=== PATIENT | male | born 1955 | race Caucasian/White ===

== ENCOUNTER → 2019-01-14 14:44 | Outpatient (CLI) | payer BC, SELFPAY ==
--- NOTE | 2019-01-14 14:49 | CT_ITS ---
STUDY: CT MAXILLOFACIAL SINUSES REASON FOR EXAM: Male, 63 years old. Sinusitis RADIATION DOSAGE (If Supplied By Facility): CTDIvol = ( 33.06 ) mGy, DLP = ( 829.72 ) mGycm TECHNIQUE: The patient was scanned in a multi detector CT scanner. High resolution axial imaging was performed without the administration of intravenous contrast material. Sagittal and coronal images were reconstructed. Individualized dose optimization techniques were used for this CT. COMPARISON: None. FINDINGS: FRONTAL SINUSES: Mucosal thickening inferior recesses of the frontal sinuses bilaterally without fluid retention. ETHMOIDAL SINUSES: Complete or partial opacification of the ethmoid sinuses bilaterally more extensively on the left status post bilateral ethmoidectomy. MAXILLARY SINUSES: Circumferential mild to moderate mucosal thickening of the right maxillary sinus status post nasoantral window which is large and remains patent. Status post right uncinectomy and partial middle turbinectomy. Advanced mucosal thickening throughout the left maxillary sinus with an occluded nasal antral window status post uncinectomy and middle turbinectomy. Mucosal thickening and complete occlusion of the left middle meatus. Somewhat nodular appearance of the mucosa in the nasal cavity. SPHENOIDAL SINUSES: Mild mucosal thickening in the right sphenoid sinus. Anterior and superior mucosal thickening in the left sphenoid sinus mucosal thickening in the sphenoethmoidal recess Normal bilateral inferior turbinates. Mild anterior left nasal septal deviation, 2 mm. There is patency of the bilateral nasal airways. The visualized osseous structures are normal. The visualized bilateral orbital contents are normal. CT/Sinus/Facial Bone IMPRESSION: Mucosal thickening of the inferior frontal sinuses with narrowing of the inferior recesses without fluid retention. Complete or partial opacification of ethmoids sinuses more extensively on the left status post bilateral ethmoidectomy. Circumferential mild to moderate mucosal thickening of the right maxillary sinus status post nasal antral window which is large and remains patent. Status post right uncinectomy and partial middle turbinectomy. Advanced mucosal thickening throughout most of the left maxillary sinus with an occluded nasoantral window also status post uncinectomy and middle turbinectomy. Mucosal thickening and complete occlusion of the left middle meatus. Somewhat nodular surface features of the mucosa in the nasal cavity. Nasal polyposis? Mild mucosal thickening right sphenoid sinus. Mild to moderate anterior and superior mucosal thickening in the left sphenoid sinus mucosal thickening in the sphenoethmoidal recess. Mild anterior left nasal septal deviation. Electronically Signed: Gloria Capone MD at 16:01 EDT , Service support ,
== END ==
PROVIDERS: Family Provider Family Medicine; PCP Family Medicine; Referring Provider Otolaryngology; Visit Provider Otolaryngology
DX: J32.2 Chronic ethmoidal sinusitis (principal)
CPT/HCPCS: 70486

== ENCOUNTER 2019-01-28 05:56 | Day surgery (SDC) | payer BC, SELFPAY ==
[2019-01-28] VITALS (7 sets, daily range): BP systolic 138–168; BP diastolic 78–96; PULSE 66–90; RESP 16–18; TEMP 36.1–36.3; O2SAT 94–97; BMI 37.3
--- NOTE | 2019-01-28 | SEP_PTH ---
PATIENT: KIMBERLI AMES LOC: [facility] [place] U#:[id number] AGE/SX: 63/M ROOM: RE01/28/[address]: Dr. Zi Burgos MD : 1955 BED: DIS: 01/28/2019 SPEC #: [id number] RECD: 01/28/19 13:03 STATUS: CARLEE REOg #: [id number] SUSANA: 01/28/19 00:[address]: Zi Burgos DEPT: SURGICAL PATHOLOGY RECD BY: Cal Weeks ENTERED: 01/28/19 13:04 SP TYPE: SEPTUM OTHR DR: Dr. Danis Cardona MD Tissues: A - Nasal septum, NOS B - Ethmoid sinus, NOS C - Ethmoid sinus, NOS Procedures: Decalcification bone/plaque Surgery Specimen Level III HEADER OPERATION: Endoscopy nasal/sinus with ethmoidectomy PRE-OP DIAGNOSIS: Chronic ethmoidal sinusitis, chronic sphenoidal sinusitis, chronic left maxillary sinusitis TISSUE SUBMITTED: A - Septal contents, B - Right sinus contents, C - Left sinus contents MICROSCOPIC DIAGNOSIS A. Nasal septum, septoplasty: Fragments of hyaline cartilage and bone with mild reparative change. B. Right sinus contents, excision: Consistent with chronic sinusitis. Polypoid fragments of respiratory mucosa consistent with sinonasal polyps. Fragments of bone with no pathologic change. C. Left sinus contents, excision: Consistent with chronic sinusitis. Minute fragments of bone with no pathologic change. AM:magalis 02/02/19 MICROSCOPIC DESCRIPTION Slides are reviewed. GROSS DESCRIPTION A - Received in fixative is one container labeled with the patient's name and designated septal contents. The specimen consists of multiple fragments of cartilage and bone that in aggregate measure 3 x 2.5 x 0.3 cm. The entire specimen is submitted in one cassette after decalcification. B - Received in fixative is one container labeled with the patient's name and designated right sinus contents. The specimen consists of a piece of nogueira-pink polypoid tissue measuring 2.5 x 1.5 x 0.6 cm. A piece of bone is noted in the center of the specimen. Also present in the container are multiple pieces of nogueira, hemorrhagic soft tissue mixed with fragments of bone measuring in aggregate 5 x 3 x 0.3 cm. The entire specimen is submitted in three cassettes after decalcification. Cassette 1 contains the polypoid piece of tissue. C - Received in fixative is one container labeled with the patient's name and designated left sinus contents. The specimen consists of multiple fragments of hemorrhagic soft tissue that in aggregate measure 5 x 4 x 2 cm. The specimen is totally submitted in one cassette. Also present in the container is a piece of nogueira mucosal tissue with underlying bone consistent with cartilage. Visual Stylist tissue is submitted in three cassettes after decalcification. / SJ:magalis 01/28/19 TC:3 CPT: 70571 x3, 12938 x3
--- NOTE | 2019-01-28 06:07 | EKG12_ITS ---
Test Reason : PRE-OP Blood Pressure : / mmHG Vent. Rate : 064 BPM Atrial Rate : 064 BPM P-R Int : 192 ms QRS Dur : 092 ms QT Int : 424 ms P-R-T Axes : 058 -13 036 degrees QTc Int : 437 ms Normal sinus rhythm Normal ECG Confirmed by PERRY TRAN, DEEP ([id number]), newspaper photo editor MARGARITO LOPEZ ([id number]) on 02/01/2019 2:08:14 PM Referred By: Zi Burgos Confirmed By:DEEP AMADOR MD
[2019-01-28] MEDS: Lactated Ringers 1,000 ML 100 ML IV ×2 (06:51→09:00)
[2019-01-28 07:00] LABS: Hematocrit 44.2 % (40-54); Hemoglobin 14.8 g/dL (13.0-16.5); Mean Corp Hgb Conc 33.5 g/dL (32-36); Mean Corpuscular Volume 89.7 fL (80-94); Platelet Count 225 K/mm3 (150-450); RBC Distribution Width CV 13.4 % (11.6-14.6); RBC Distribution Width SD 43.9 fl (35.1-43.9); Red Blood Count 4.93 M/mm3 (4.6-6.2); White Blood Count 4.2 K/mm3 (4.4-11.0)
[2019-01-28 07:13] LABS: Anion Gap 7 (5-15); BUN 15 mg/dL (7-18); BUN/Creat Ratio 24.7 RATIO (10-20); Calcium,Total 8.6 mg/dL (8.5-10.1); Chloride 110 mmol/L (98-107); Creatinine, Serum 0.61 mg/dL (0.70-1.30); EST Glomerular Filtration Rate 143 mL/min (>60); Est Glom Filt Rate - Afr Amer 172 mL/min (>60); Estimated Creatinine Clearance 136.05 ml/min; Glucose 91 mg/dL (74-106); Sodium Level 141 mmol/L (136-145)
[2019-01-28] MEDS: Oxymetazoline 0.05% 1 SPRAY SPRAY.BTL 15 SPRAY (07:55)
[2019-01-28] MEDS: Lidocaine 4% 50 ML Bottle (07:55)
[2019-01-28] MEDS: Bacitracin 500 UNITS/GM PACKET (09:19)
--- NOTE | 2019-01-28 09:23 | PCM.OPRPT ---
Problem List (1) Deviated nasal septum Status: Chronic (2) Chronic maxillary sinusitis Status: Chronic (3) Chronic ethmoidal sinusitis Status: Chronic (4) Chronic sphenoidal sinusitis Status: Chronic Report of Operation Date of Procedure: 01/28/19 Pre-Operative Diagnosis: Deviated nasal septum, chronic sinusitis Post-Operative Diagnosis: Same Surgery/Procedure Performed:: Septoplasty, endoscopic left maxillary antrostomy with tissue removal, bilateral total ethmoidectomy, and bilateral sphenoidotomy Description of Surgical Findings:: All is a 63-year-old male with a history of chronic sinus disease. He had surgery previously but continued to suffer bilateral nasal congestion and discharge. Examination showed extensive narrowing and polypoid degeneration of the nasal cavity and CT scan confirmed chronic sinusitis with postoperative change. There is additionally noted to be leftward deviation of nasal septum which is concern being as far as contributing to his nasal obstruction and limiting operative access. The above procedure was offered in hopes of improvement of his complaints and he was eager to proceed. The risks, alternatives, potential complications, and benefits were discussed at length and any questions answered to the patient and/or caregiver's satisfaction. Witnessed informed consent was obtained in the office, and the patient and/or caregiver was agreeable to proceed. Procedure went as follows: The patient was identified in the preoperative holding and brought to the operating room, was placed under general anesthesia and intubated. When appropriate anesthesia was obtained, pledgets soaked in a 50-50 mixture of oxymetazoline and 4% topical lidocaine were placed to decongest the nasal mucosa. The nasal septum was then injected beginning on the left side with 1% lidocaine with 100,000 epinephrine for a total of 10 mL. The pledgets were then removed and the left nasal cavity examined. There was noted to be significant nasal septal deviation to the left obstructing the ostiomeatal complex and ethmoid sinus openings. Using a 15 blade scalpel, a hemitransfixion incision was then made on the left side and using the Braxton elevator a subperichondrial/periosteal flap was elevated. The septum was then transected at the bony cartilaginous junction and a similar flap raised on the contralateral side. Using a Jose Juan forceps, the septum was then sharply transected superiorly and the deviated portions removed with a Gene forceps. Any inferior bony spur was then removed with a chisel allowing for midline placement of the nasal septum. The hemitransfixion incision was then closed with interrupted 4-0 chromic gut suture followed by a 4-0 plain quilting suture to reapproximate the mucosal flaps. The navigational head gear was placed and confirmed to be operational in accordance with the agriculture department chair's directions prior to beginning the procedure. Beginning on the left side using a 0? endoscope the nasal cavity examined. There is noted to be polypoid degeneration and thick entrapped mucus completely occluding the ethmoid and maxillary sinus openings. The insertion of the middle turbinate and uncinate process was then injected with 1% lidocaine with 100,000 epinephrine for a total of 2 mL, and a similar injection was then carried on the contralateral side. Upon returning to the left side, the middle turbinate was medialized with a Fausto elevator. This allowed examination of the maxillary sinus ostia which was then probed with a double ball seeker. Thick mucus was then aspirated with a portion sent for culture and sensitivity. The uncinate process was noted to be retained and this was then removed with a J curette and transected with a backbiting forceps. This was then removed with the microdebrider creating a wide maxillary antrostomy. Extensive soft tissue and polypoid inflammatory debris was removed from within the maxillary sinus and sent as specimen. The ethmoid bulla was then entered and a total ethmoidectomy was then carried out working posteriorly to anterior. Any polyps, scar, and mucous secretions were removed. Is noted to be significant polypoid degeneration that extended down into the middle turbinate which was additionally removed. Posteriorly the arterial blood supply was then cauterized with suction electrocautery for hemostasis and the turbinate sent with the resection specimen. The sphenoid sinus ostium was then identified and opened widely with any polyps, secretions, or other debris removed. The frontal sinus ostia was probed and suctioned clear, but was found to be patent. Pledgets soaked in oxymetazoline were then placed for hemostasis and attention turned to the contralateral side. Similar procedure and findings were then carried out. Floseal hemostatic agent was then applied. An NG tube was then placed to decompress the stomach and the patient returned to anesthesia, revived and extubated having tolerated the procedure well. Type of Anesthesia:: General Anesthesiologist: Zi Trevino Special Medications: none Specimen's removed: septal and sinus contents, culture of left maxillary sinus Drains: none Estimated Blood Loss (mL): 300 Fluids Replaced: 1500 Grafts/Implants Used: none - Complications none - Admit VTE Documentation VTE Present on Admission: No VTE Mechan Device Prophylaxis: SCD's VTE Pharm Prophylaxis ordered?: No
--- NOTE | 2019-01-28 09:33 | DCINST_ITS ---
- Discharge Diagnoses Current Active Problems: Current Active and Chronic Problems Deviated nasal septum (Chronic) Chronic maxillary sinusitis (Chronic) Chronic ethmoidal sinusitis (Chronic) Chronic sphenoidal sinusitis (Chronic) You will use the following diet at home:: Regular Discharge Activity: Return to Normal Activity, May not drive while taking narcotic pain medications. Call your doctor if your incision/area has: Sudden Increased Bleeding Call your doctor if you observe: Fever of 101 or Higher, Uncontrolled pain Allergies/Adverse Reactions: Allergies No Known Allergies Allergy (Verified 01/28/19 06:34) Medications to take at Discharge Doxazosin Mesylate [Cardura] 8 mg PO QHS 01/25/19 Lisinopril 5 mg PO DAILY 01/25/19 Meloxicam [Mobic] 15 mg PO PRN PRN 01/25/19 Amoxicillin 500 mg PO [id number] 01/28/19 Primary Care Physician: Danis Cardona MD [Primary Care Provider] - Test Results: Test results from this visit will be discussed in further detail at your follow- up appointment, if applicable. Please Follow Up With: Zi Burgos MD When: 2 weeks
== END 2019-01-28 11:14 | disposition home or self-care (01) ==
LOC: SDC 05:59 → AC 06:00
PROVIDERS: Anesthesiology; Family Provider Family Medicine; PCP Family Medicine; Referring Provider Otolaryngology; Visit Provider Otolaryngology
PROC: (CPT 30520; principal; 2019-01-28 07:00)
DX: J34.2 Deviated nasal septum (principal); J32.0 Chronic maxillary sinusitis; J32.2 Chronic ethmoidal sinusitis; J32.3 Chronic sphenoidal sinusitis; I10 Essential (primary) hypertension; Z79.899 Other long term (current) drug therapy; Z87.891 Personal history of nicotine dependence
CPT/HCPCS: 00160; 30520; 31257; 31267; 36415; 80048; 85027; 87070; 87075; 87077; 87102; 87176; 87186; 87205; 87206; 88304; 88305; 88311; 93005; J7120; J2405

== ENCOUNTER 2021-04-22 13:54 | Outpatient (CLI) | payer MEDICARE, BC, SELFPAY ==
--- NOTE | 2021-04-22 14:01 | RAD_ITS ---
STUDY: XR Abdomen 1 View 04/22/2021 2:10 PM REASON FOR EXAM: Male, 65 years old. ABDOMINAL PAIN CALCULUS OF KIDNEY TECHNIQUE: XR Abdomen 1 View COMPARISON: None FINDINGS: Normal visualized lung bases. Healed right rib fracture. There is a moderate amount of colonic fecal material. There is no demonstrated free abdominal air. Degenerative findings of the hips. The visualized liver, spleen and kidneys are grossly normal in size and morphology. Normal soft tissue structures. There are diffuse degenerative changes of the visualized lumbar spine. RAD/Abdomen Single View IMPRESSION: There are no acute findings. Electronically Signed: Jonah Barron MD at 16:36 EST ,
== END 2021-04-22 23:59 | disposition home or self-care (01) ==
PROVIDERS: PCP Family Medicine; Referring Provider Urology; Visit Provider Urology
DX: N20.0 Calculus of kidney (principal)
CPT/HCPCS: 74018

== ENCOUNTER → 2022-04-24 | Outpatient (CLI) | payer MEDICARE, BC, SELFPAY ==
--- NOTE | 2022-04-24 11:35 | RAD_ITS ---
STUDY: X-RAY - ABDOMEN/PELVIS REASON FOR EXAM: Male, 66 years old. Kidney stone follow-up. TECHNIQUE: Single AP view of the abdomen / pelvis on 2 images. COMPARISON: April 22, 2021. FINDINGS: Normal visualized lung bases. There is an unremarkable bowel gas pattern. There is no demonstrated free abdominal air. The visualized liver, spleen and kidneys are grossly normal in size and morphology. No abnormal intra-abdominal calcifications identified. Stable mild arthrosis of both hips. RAD/Abdomen Single View IMPRESSION: No interval change. No intra-abdominal calcifications. No acute finding. Electronically Signed: Codey Chi, at 13:31 EST ,
[2022-04-24 16:27] LABS: PSA,Total - Annual Screen 0.94 ng/mL (0.00-4.00)
== END | disposition home or self-care (01) ==
PROVIDERS: Referring Provider Urology; Visit Provider Urology
DX: N20.0 Calculus of kidney (principal); Z12.5 Encounter for screening for malignant neoplasm of prostate
CPT/HCPCS: 36415; 74018; 84153; G0103

== ENCOUNTER → 2023-05-26 | Outpatient (CLI) | payer MEDICARE, BC, SELFPAY | END | disposition home or self-care (01) | LOC: LAB 10:46 | PROVIDERS: PCP Nurse Practitioner Primary Care; Referring Provider Urology; Visit Provider Urology | DX: Z12.5 Encounter for screening for malignant neoplasm of prostate (principal) | CPT/HCPCS: 36415; 84153; G0103 ==

== ENCOUNTER → 2024-05-31 | Outpatient (CLI) | payer MEDICARE, BC, SELFPAY ==
[2024-05-31 11:28] LABS: PSA,Total - Annual Screen 0.51 ng/mL (0.02-4.00)
== END | disposition home or self-care (01) ==
PROVIDERS: PCP Nurse Practitioner Primary Care; Visit Provider Nurse Practitioner
DX: Z12.5 Encounter for screening for malignant neoplasm of prostate (principal)
CPT/HCPCS: 84153; G0103